=== PATIENT | female | born 1975 | race Hispanic/Latino ===

== ENCOUNTER 2023-03-05 18:13 | Inpatient (IN) | payer OTHER, SELFPAY ==
[2023-03-05] MEDS ORDERED: diphenhydrAMINE 50 MG/ML VIAL ONE (20:08)
[2023-03-05] MEDS ORDERED: Ketorolac Tromethamine 30 MG/ML VIAL ONE (20:08)
[2023-03-05] MEDS ORDERED: methylPREDNISolone Sod Succ/PF 125 MG/2 ML VIAL ONE (20:08)
[2023-03-05] MEDS ORDERED: Metoclopramide HCl 10 MG/2 ML VIAL ONE (20:08)
[2023-03-05 20:18] LABS: #Eosinphils 0.1 thou/uL (0.0-0.7); #Monocytes 0.7 thou/uL (0.11-0.59); #Neutrophils 6.3 thou/uL (1.40-6.50); %Basophils 0.3 % (0.0-1.0); %Eosinophils 0.9 % (0.0-10.0); %Lymphocytes 16.9 % (21.0-51.0); %Monocytes 8.4 % (0.0-10.0); %Neutrophils 73.2 % (42.0-75.0); Hematocrit 45.4 % (36.0-47.0); Hemoglobin 14.9 g/dL (12.0-16.0); Mean Corpuscular HGB CONC 32.8 g/dL (32.0-36.0); Mean Corpuscular Hemoglobin 29.1 pg (27.0-31.0); Mean Corpuscular Volume 88.7 fl (78.0-98.0); Mean Platelet Volume 10.7 fL (7.4-10.4); Platelet Count 225 10x3/uL (130-400); Red Blood Cell (RBC) Count 5.12 mill/uL (4.20-5.40); White Blood Cell (WBC) Count 8.6 10x3/uL (4.8-10.8)
[2023-03-05 20:43] LABS: Troponin I Less than 0.010 ng/mL (< 0.028)
[2023-03-05 20:46] LABS: ALT (SGPT) 44 U/L (8-55); AST (SGOT) 35 U/L (5-34); Albumin 4.2 g/dL (3.5-5.0); Alkaline Phosphatase 100 U/L (40-110); Anion Gap 12 mmol/L (10-20); BUN (Urea Nitrogen) 9 mg/dL (7.0-18.7); Bilirubin, Total 0.2 mg/dL (0.2-1.2); Calc. Creatinine Clearance 0 mL/min (70-130); Carbon Dioxide 25 mmol/L (22-29); Chloride 106 mmol/L (98-107); Estimated GFR 111; Globulin 2.6 g/dL (2.4-3.5); Glucose 88 mg/dL (70-105); Potassium 4.3 mmol/L (3.5-5.1); Protein, Total 6.8 g/dL (6.0-8.3); Sodium 139 mmol/L (136-145)
[2023-03-05] MEDS ORDERED: Magnesium 2 GM/50 ML BAG (IN WATER) ONE (22:01)
[2023-03-05 22:56] LABS: Bacteria/HPF 1+ HPF (None Seen); Bilirubin Negative (Negative); Blood, Urine 3+ (Negative); CAUTI Indications for Culture Alt mental st,lethar; Clarity Turbid (Clear); Glucose, Urine (Dipstick) Normal (Negative); Ketone, Urine Negative (Negative); Leukocyte 250 Leu/uL (Negative); Nitrite Negative (Negative); Protein, Urine (Dipstick) 30 mg/dL (Neg-Trace); RBC/HPF Greater than 50 HPF (0-3); Squamous Epithelial None Seen HPF (0-3); Urobilinogen Normal mg/dL (Less than 2); pH, Urine 6.5 (5.0-9.0)
[2023-03-05 22:57] LABS: Urine Culture Reflex No No
[2023-03-06] MEDS ORDERED: Fioricet 325/50/40 mg Tablet PO PRN (01:00)
[2023-03-06] MEDS ORDERED: Ondansetron PF 4 MG/2 ML Vial IVP PRN (01:00)
[2023-03-06] MEDS ORDERED: Ondansetron ODT 4 MG TAB PO PRN (01:00)
[2023-03-06 01:59] VITALS: BMI 500658.4
[2023-03-06 02:29] LABS: CK (CPK) 71 U/L (29-168); Magnesium 2.2 mg/dL (1.6-2.6); Phosphorus 3.6 mg/dL (2.3-4.7)
[2023-03-06] MEDS ORDERED: FLU VACC QS2023-24(6MOS UP)/PF 60 MCG/0.5 ML SYRINGE IM ONE (09:00)
[2023-03-06] MEDS: Acetaminophen 325 MG TAB PO PRN ×3 (09:43→18:39)
[2023-03-06] MEDS ORDERED: Prochlorperazine Edisylate 10 MG in Sodium Chloride 0.9% 50 ML IVPB SCH (19:03)
[2023-03-06] MEDS ORDERED: diphenhydrAMINE 50 MG/ML VIAL IVP SCH (19:03)
[2023-03-07 05:04] LABS: #Basophils 0.1 thou/uL (0.0-0.2); #Eosinphils 0.1 thou/uL (0.0-0.7); #Monocytes 0.8 thou/uL (0.11-0.59); #Neutrophils 6.4 thou/uL (1.40-6.50); %Basophils 0.5 % (0.0-1.0); %Eosinophils 1.4 % (0.0-10.0); %Lymphocytes 21.9 % (21.0-51.0); %Monocytes 8.5 % (0.0-10.0); %Neutrophils 67.3 % (42.0-75.0); Hematocrit 42.1 % (36.0-47.0); Hemoglobin 13.7 g/dL (12.0-16.0); Mean Corpuscular HGB CONC 32.5 g/dL (32.0-36.0); Mean Corpuscular Hemoglobin 29.3 pg (27.0-31.0); Mean Corpuscular Volume 90.1 fl (78.0-98.0); Mean Platelet Volume 10.7 fL (7.4-10.4); Platelet Count 205 10x3/uL (130-400); RBC Distribution Width 13.4 % (11.5-14.5); Red Blood Cell (RBC) Count 4.67 mill/uL (4.20-5.40); White Blood Cell (WBC) Count 9.6 10x3/uL (4.8-10.8)
[2023-03-07 05:26] LABS: Anion Gap 11 mmol/L (10-20); BUN (Urea Nitrogen) 20 mg/dL (7.0-18.7); Calc. Creatinine Clearance 173 mL/min (70-130); Calcium 8.6 mg/dL (7.8-10.44); Carbon Dioxide 28 mmol/L (22-29); Chloride 107 mmol/L (98-107); Estimated GFR 95; Glucose 112 mg/dL (70-105); Sodium 142 mmol/L (136-145)
[2023-03-07] MEDS: Acetaminophen 325 MG TAB PO PRN ×3 (07:57→18:36)
[2023-03-07 10:53] LABS: #Eosinphils 0.1 thou/uL (0.0-0.7); #Monocytes 0.6 thou/uL (0.11-0.59); #Neutrophils 7.1 thou/uL (1.40-6.50); %Basophils 0.4 % (0.0-1.0); %Eosinophils 1.4 % (0.0-10.0); %Monocytes 6.1 % (0.0-10.0); %Neutrophils 73.7 % (42.0-75.0); Hemoglobin 14.6 g/dL (12.0-16.0); Mean Corpuscular HGB CONC 32.4 g/dL (32.0-36.0); Mean Corpuscular Hemoglobin 29.1 pg (27.0-31.0); Mean Corpuscular Volume 89.6 fl (78.0-98.0); Mean Platelet Volume 10.4 fL (7.4-10.4); Platelet Count 204 10x3/uL (130-400); RBC Distribution Width 13.4 % (11.5-14.5); Red Blood Cell (RBC) Count 5.02 mill/uL (4.20-5.40); White Blood Cell (WBC) Count 9.6 10x3/uL (4.8-10.8)
[2023-03-07 11:16] LABS: ALT (SGPT) 38 U/L (8-55); AST (SGOT) 27 U/L (5-34); Albumin 4.1 g/dL (3.5-5.0); Alkaline Phosphatase 93 U/L (40-110); Anion Gap 12 mmol/L (10-20); BUN (Urea Nitrogen) 21 mg/dL (7.0-18.7); Bilirubin, Total 0.2 mg/dL (0.2-1.2); Calc. Creatinine Clearance 185 mL/min (70-130); Calcium 8.9 mg/dL (7.8-10.44); Carbon Dioxide 26 mmol/L (22-29); Chloride 107 mmol/L (98-107); Estimated GFR 103; Globulin 2.4 g/dL (2.4-3.5); Glucose 99 mg/dL (70-105); Potassium 4.3 mmol/L (3.5-5.1); Protein, Total 6.5 g/dL (6.0-8.3); Sodium 141 mmol/L (136-145)
[2023-03-07 11:33] LABS: HIV (1/2) Antibody/Antigen Non-Reactive (NonReactive)
[2023-03-07 11:39] LABS: Vitamin B12 472 pg/mL (211-911)
[2023-03-07] MEDS ORDERED: Magnevist 469MG/ML 20 ML VIAL ONE ×2 (13:35→15:58)
[2023-03-08] MEDS: Acetaminophen 325 MG TAB PO PRN ×2 (04:25→11:12)
[2023-03-08 07:52] VITALS: BP 111/71; TEMP 98.3
[2023-03-08 12:17] LABS: Syphilis Antibody Nonreactive (Nonreactive); Syphilis Antibody Index 0.03 S/CO (<1.00 Non-Reactive)
== END 2023-03-08 12:00 | disposition home or self-care (01) | DRG 948 ==
LOC: ERS 18:13 → 2SE 23:45 → OBSVTOIN 03-06 12:56
PROVIDERS: ADMIT Student in an Organized Health Care Education/Training Program; ATTEND Student in an Organized Health Care Education/Training Program
DX: R53.1 Weakness (principal); Z68.42 Body mass index [BMI] 45.0-49.9, adult; R29.898 Other symptoms and signs involving the musculoskeletal system; E66.01 Morbid (severe) obesity due to excess calories; M47.812 Spondylosis without myelopathy or radiculopathy, cervical region; M54.2 Cervicalgia; G43.909 Migraine, unspecified, not intractable, without status migrainosus; Z71.82 Exercise counseling
CPT/HCPCS: 36415; 70450; 70551; 72141; 72142; 72158; 80048; 80053; 81001; 82550; 82607; 83735; 84100; 84425; 84443; 84484; 85025; 86780; 87389; 90471; 90686; 93005; 96361; 96365; 96367; 96375; G0008; G0378; J0780; J1200; J1650; J1885; J2765; J2930; J3475